=== PATIENT | female | born 1980 | race African-American/Black ===

== ENCOUNTER 2023-02-28 08:57 | Emergency (ER) | payer OTHER ==
[2023-02-28 09:04] VITALS: BMI 26.5
[2023-02-28] MEDS ORDERED: ONDANSETRON 4 MG/2 ML VIAL IVPUSH ONE (09:27)
[2023-02-28] MEDS ORDERED: ACETAMINOPHEN 1000 MG/100 ML BAG IVPB ONE (09:27)
[2023-02-28] MEDS ORDERED: SODIUM CHLORIDE 0.9% 500 ML INFUS.BAG IV ONE (09:27)
[2023-02-28] MEDS ORDERED: ACETAMINOPHEN INJECTION 100 ML IVPB ONE (09:52)
[2023-02-28] MEDS ORDERED: ONDANSETRON 4 MG/2 ML VIAL ONE (09:52)
[2023-02-28 10:03] LABS: EPI CELLS 25 /uL (0-25.1); HYALINE CASTS 1 /uL (0-3.1); PH,URINE 5.5 (5.0-8.0); URINE APPEARANCE CLEAR; URINE BACTERIA 94 /uL (0-1359); URINE BILIRUBIN NEGATIVE (NEGATIVE); URINE COLOR YELLOW; URINE GLUCOSE (UA) NEGATIVE (NEGATIVE); URINE KETONE NEGATIVE (NEGATIVE); URINE LEUK ESTERASE NEGATIVE (NEGATIVE); URINE NITRITE NEGATIVE (NEGATIVE); URINE PROTEIN NEGATIVE (NEGATIVE); URINE RBC 84 /uL (0-23.9); URINE WBC 13 /uL (0-25.8)
[2023-02-28 10:20] LABS: BASO % 0.3 % (0-2.0); EOS % 3.9 % (0-4.5); HEMATOCRIT 31.1 % (32.4-45.2); HEMOGLOBIN 9.9 GM/dL (10.7-15.3); LYMPH % 20.2 % (8-40); MCH 23.3 pg (25.7-33.7); MCHC 31.9 g/dl (32.0-36.0); MEAN CELL VOLUME 72.9 fl (80-96); MEAN PLT VOLUME 8.1 fl (7.5-11.1); MONO % 6.3 % (3.8-10.2); NEUT % 69.3 % (42.8-82.8); PLATELET COUNT 364 10^3/uL (134-434); RBC 4.27 M/mm3 (3.60-5.2); RDW 18.6 % (11.6-15.6); WHITE BLOOD COUNT 14.2 K/mm3 (4.0-10.0)
[2023-02-28 10:26] LABS: INR 1.03 (0.83-1.09); PROTHROMBIN TIME (PATIENT) 11.9 SEC (9.7-13.0)
[2023-02-28 10:29] LABS: ACTIVATED PTT 29.4 SECONDS (25.2-36.5)
[2023-02-28 10:46] LABS: POTASSIUM 3.1 mmol/L (3.5-5.1)
[2023-02-28 10:48] LABS: CALCIUM 8.7 mg/dL (8.5-10.1)
[2023-02-28 10:49] LABS: ALBUMIN 3.2 g/dl (3.4-5.0); BLOOD UREA NITROGEN 9.3 mg/dL (7-18)
[2023-02-28 10:51] LABS: CREATININE 0.6 mg/dL (0.55-1.3)
[2023-02-28 10:53] LABS: BILIRUBIN,TOTAL 0.4 mg/dL (0.2-1); TOT PROT 6.8 g/dl (6.4-8.2)
[2023-02-28] MEDS ORDERED: morphine CARPU-JECT 2 MG/1 ML DISP.SYRIN IVPUSH ONE (14:09)
[2023-02-28 14:13] VITALS: TEMP 97.9
[2023-02-28] MEDS ORDERED: KETOROLAC TROMETHAMINE 15 MG/ML VIAL IVPUSH ONE (15:04)
[2023-02-28] MEDS ORDERED: CEPHALEXIN MONOHYDRATE 500 MG CAPSULE (UD) PO ONE (15:04)
[2023-02-28] MEDS ORDERED: KETOROLAC TROMETHAMINE 15 MG/ML VIAL ONE (15:25)
[2023-02-28] MEDS ORDERED: CEPHALEXIN MONOHYDRATE 500 MG CAPSULE (UD) ONE (15:25)
[2023-02-28 15:42] VITALS: BP 128/74; PULSE 87; RESP 20
== END 2023-02-28 15:42 | disposition home or self-care (01) ==
LOC: JER 08:57
PROC: 3E033NZ Introduction of Analgesics, Hypnotics, Sedatives into Peripheral Vein, Percutaneous Approach (ICD-10-PCS; principal; 2023-02-28)
PROC: 3E0333Z Introduction of Anti-inflammatory into Peripheral Vein, Percutaneous Approach (ICD-10-PCS; 2023-02-28)
PROC: 3E033GC Introduction of Other Therapeutic Substance into Peripheral Vein, Percutaneous Approach (ICD-10-PCS; 2023-02-28)
PROC: 3E033GC Introduction of Other Therapeutic Substance into Peripheral Vein, Percutaneous Approach (ICD-10-PCS; 2023-02-28)
DX: R10.32 Left lower quadrant pain (principal); R14.0 Abdominal distension (gaseous); R11.0 Nausea; N20.0 Calculus of kidney; K59.00 Constipation, unspecified; R30.0 Dysuria; R68.83 Chills (without fever); R00.0 Tachycardia, unspecified; R68.2 Dry mouth, unspecified; R31.9 Hematuria, unspecified
CPT/HCPCS: 36415; 74177-TC; 80053; 81003; 83605; 83690; 83735; 84703; 85025; 85610; 85730; 86850; 86900; 86901; 87086; 93005; 93010; 99285-25; Q9967

== ENCOUNTER 2024-12-15 21:30 | Emergency (ER) | payer OTHER ==
[2024-12-15 21:37] VITALS: BP 113/78; PULSE 96; RESP 18; TEMP 98.2; BMI 27.4
[2024-12-15 23:55] LABS: ABSOLUTE IMMATURE GRANULOCYTES 0.02 x10^3/uL (0.0-0.031); BASOPHILS # 0.05 x10^3/uL (0.01-0.08); EOSINOPHIL % 7.6 % (0.7-5.8); EOSINOPHILS # 0.64 x10^3/uL (0.04-0.36); HEMATOCRIT 31.4 % (34.1-44.9); HEMOGLOBIN 9.2 g/dL (11.2-15.7); MCHC 29.3 g/dl (32.2-35.5); MEAN CELL VOLUME 74.9 fl (79.4-94.8); MONOCYTE # 0.48 x10^3/uL (0.24-0.86); MONOCYTE % 5.7 % (4.7-12.5); PLATELET COUNT # 586 x10^3/uL (182-369); RDW 27.2 % (12.2-17.1)
[2024-12-16] MEDS ORDERED: ACETAMINOPHEN INJECTION 100 ML ONE (00:07)
[2024-12-16 00:09] LABS: POTASSIUM 3.9 mmol/L (3.5-5.1)
[2024-12-16 00:11] LABS: ALBUMIN 3.5 g/dl (3.4-5.0); CALCIUM 8.9 mg/dL (8.5-10.1)
[2024-12-16] MEDS: ACETAMINOPHEN 1000 MG/100 ML BAG IVPB ONE (00:11)
[2024-12-16 00:14] LABS: CREATININE 0.7 mg/dL (0.55-1.3)
[2024-12-16 00:16] LABS: BILIRUBIN,TOTAL 0.4 mg/dL (0.2-1); TOT PROT 7.7 g/dl (6.4-8.2)
[2024-12-16 00:26] LABS: INR 1.13 (0.83-1.09); PROTHROMBIN TIME (PATIENT) 12.3 SEC (9.7-13.0)
[2024-12-16 00:28] LABS: ACTIVATED PTT 26.1 SECONDS (25.2-36.5)
[2024-12-16 01:05] LABS: HCV DIAGNOSTIC IN-HOUSE W/RFLX NON-REACTIVE (NONREACTIVE)
[2024-12-16 01:06] LABS: HIV INTERPRETATION NEGATIVE (NEGATIVE)
== END 2024-12-16 04:17 | disposition home or self-care (01) ==
LOC: JER 21:30
PROC: 3E033NZ Introduction of Analgesics, Hypnotics, Sedatives into Peripheral Vein, Percutaneous Approach (ICD-10-PCS; principal; 2024-12-16)
DX: N92.1 Excessive and frequent menstruation with irregular cycle (principal); R42 Dizziness and giddiness; R10.30 Lower abdominal pain, unspecified
CPT/HCPCS: 0241U-QW; 36415; 76830-TC; 80053; 85025; 85610; 85730; 86803; 86850; 86900; 86901; 87389; 96374; 99285-25; J0131

== ENCOUNTER 2025-05-17 07:24 | Emergency (ER) | payer OTHER ==
[2025-05-17 07:43] VITALS: TEMP 98.3; BMI 28.0
[2025-05-17] MEDS ORDERED: diphenhydrAMINE HCL 25 MG CAPSULE (FP) PO ONE (08:32)
[2025-05-17] MEDS: diphenhydrAMINE HCL 25 MG CAPSULE (FP) PO ONE (08:37)
[2025-05-17 08:56] LABS: ABSOLUTE IMMATURE GRANULOCYTES 0.05 x10^3/uL (0.0-0.031); BASOPHILS # 0.03 x10^3/uL (0.01-0.08); EOSINOPHIL % 4.5 % (0.7-5.8); EOSINOPHILS # 0.59 x10^3/uL (0.04-0.36); MCHC 30.0 g/dl (32.2-35.5); MEAN CELL VOLUME 74.9 fl (79.4-94.8); MEAN PLT VOLUME 10.0 fl (9.4-12.3); MONOCYTE # 0.71 x10^3/uL (0.24-0.86); MONOCYTE % 5.4 % (4.7-12.5); RDW 16.2 % (12.2-17.1)
[2025-05-17 09:09] LABS: GLUCOSE,RANDOM 91 mg/dL (74-106)
[2025-05-17 09:10] LABS: TOT PROT 7.5 g/dl (6.4-8.2)
[2025-05-17 09:12] LABS: ALK PHOS 72 U/L (40-150)
[2025-05-17 09:15] LABS: CO2 25 mmol/L (21-32); CREATININE 0.70 mg/dL (0.55-1.3); SGOT/AST 19 U/L (5-34); SGPT/ALT 14 U/L (0-55)
[2025-05-17 09:38] LABS: HCV DIAGNOSTIC IN-HOUSE W/RFLX NON-REACTIVE (NONREACTIVE); HIV INTERPRETATION NEGATIVE (NEGATIVE)
[2025-05-17] MEDS ORDERED: ACETAMINOPHEN INJECTION 100 ML ONE (10:16)
[2025-05-17] MEDS ORDERED: ONDANSETRON 4 MG/2 ML VIAL ONE (10:16)
[2025-05-17 11:15] LABS: EPI CELLS 2 /uL (0-25.1); HYALINE CASTS 0 /uL (0-3.1); URINE APPEARANCE CLEAR; URINE BACTERIA 22 /uL (0-1359); URINE BILIRUBIN NEGATIVE (NEGATIVE); URINE COLOR YELLOW; URINE GLUCOSE (UA) NEGATIVE (NEGATIVE); URINE KETONE NEGATIVE (NEGATIVE); URINE LEUK ESTERASE TRACE (NEGATIVE); URINE NITRITE NEGATIVE (NEGATIVE); URINE PROTEIN NEGATIVE (NEGATIVE); URINE RBC 3 /uL (0-23.9); URINE UROBILINOGEN 0.2 mg/dL (0.2-1.0); URINE WBC 2 /uL (0-25.8)
[2025-05-17] MEDS: ACETAMINOPHEN 1000 MG/100 ML BAG IVPB ONE (11:29)
[2025-05-17] MEDS: ONDANSETRON 4 MG/2 ML VIAL IVPUSH ONE (11:33)
[2025-05-17 11:48] VITALS: BP 122/64; PULSE 87; RESP 17
== END 2025-05-17 12:19 | disposition home or self-care (01) ==
LOC: JER 07:24
PROC: 3E033NZ Introduction of Analgesics, Hypnotics, Sedatives into Peripheral Vein, Percutaneous Approach (ICD-10-PCS; principal; 2025-05-17)
PROC: 3E033GC Introduction of Other Therapeutic Substance into Peripheral Vein, Percutaneous Approach (ICD-10-PCS; 2025-05-17)
DX: T81.89XA Other complications of procedures, not elsewhere classified, initial encounter (principal); L29.9 Pruritus, unspecified; R10.30 Lower abdominal pain, unspecified; G89.18 Other acute postprocedural pain; R50.9 Fever, unspecified; R11.0 Nausea; M79.661 Pain in right lower leg; M79.662 Pain in left lower leg
CPT/HCPCS: 36415; 74177-TC; 80053; 81003; 83735; 84702; 85025; 86803; 86850; 86900; 86901; 87086; 87389; 93005; 93010; 93970-TC; 96374; 96375; 99285-25; Q9967